=== PATIENT | male | born 1965 | race Caucasian/White ===

== ENCOUNTER 2024-07-01 14:20 | Outpatient (CLI) | payer OTHER | END 2024-07-01 14:34 | disposition home or self-care (01) | LOC: RAD 14:20 | PROVIDERS: ATTEND Orthopaedic Surgery | DX: M25.512 Pain in left shoulder (principal) ==

== ENCOUNTER 2024-07-02 07:43 | Outpatient (CLI) | payer OTHER | END 2024-07-02 07:51 | disposition home or self-care (01) | LOC: SONOGRAMA 07:43 | PROVIDERS: ATTEND Orthopaedic Surgery | DX: M25.512 Pain in left shoulder (principal); M75.42 Impingement syndrome of left shoulder ==